=== PATIENT | female | born 1985 | race Caucasian/White ===

== ENCOUNTER 2021-06-12 17:15 | Outpatient (REF) | payer BC, SELFPAY ==
[2021-06-14 10:50] LABS: COVID-19 RT-PCR UVMMC Result Negative (Negative)
== END 2021-06-12 17:16 | disposition home or self-care (01) ==
LOC: NCHCN 17:15
PROVIDERS: Visit Provider Internal Medicine
DX: Z20.822 Contact with and (suspected) exposure to COVID-19 (principal)
CPT/HCPCS: U0003

== ENCOUNTER 2025-08-16 10:51 | Outpatient (REF) | payer BC, SELFPAY ==
[2025-08-16 19:23] LABS: ALT 15 U/L (10-49); AST 16 U/L (<34); Albumin 4.2 g/dL (3.2-5.0); Alkaline Phosphatase 70 U/L (46-116); Anion Gap 8 mmol/L (3-11); BUN 13 mg/dL (9-23); Bilirubin, Total 0.50 mg/dL (0.2-1.2); CO2 28.0 mmol/L (20.0-31.0); Calcium 8.9 mg/dL (8.3-10.6); Chloride 107 mmol/L (98-107); Cholesterol 197 mg/dL (<200); Glucose 77 mg/dL (74-106); HDL Cholesterol 48 mg/dL (>40); Potassium 4.3 mmol/L (3.5-5.1); Sodium 143 mmol/L (136-145); Total Protein 6.9 g/dL (5.7-8.2)
== END 2025-08-16 10:52 | disposition home or self-care (01) ==
LOC: NCHCN 10:51
PROVIDERS: PCP Physician Assistant; Visit Provider Physician Assistant
DX: E78.5 Hyperlipidemia, unspecified (principal)
CPT/HCPCS: 80053; 80061